=== PATIENT | female | born 1985 | race Caucasian/White ===

== ENCOUNTER → 2018-12-01 | Outpatient (CLI) | payer BC ==
--- NOTE | 2018-12-01 12:53 | Diagnostic Imaging Report ---
INDICATION: survey. TECHNIQUE: Multiple real-time grayscale images were obtained over the gravid uterus. COMPARISON: None. FINDINGS: There is a single live fetus in breech presentation. heart rate was recorded at 132 beats per minute. The placenta is posterior. The amniotic fluid volume is normal. survey demonstrates kidneys, bladder, and stomach to be unremarkable. The brain is unremarkable. There is a four-chamber heart. There is a three-vessel cord with normal insertion. The spine is unremarkable. Biometrical measurements are as follows: Biparietal 4.51 cm, age 19 weeks 5 days. Head circumference 18.02 cm, age 20 weeks 4 days. Abdominal circumference 14.70 cm, age 20 weeks 0 days. Femur length 3.26 cm, age 20 weeks 2 days. Sonographic estimate age: 20 weeks 1 days. Sonographic estimated date of delivery: 04/18/2019. Estimated Weight: 332 gm (+/- 48 gm). LMP percentile: 35%. heart rate: 132 beats per minute. number: 1 of 1. IMPRESSION: Single live IUP at approximately 20 weeks 1 day gestational age. The estimated date of confinement sonographically is 04/18/2019. Dictated by: Dictated on workstation # [id number]
== END ==
LOC: RAD 10:07
PROVIDERS: ATTEND Obstetrics & Gynecology
DX: Z36.89 Encounter for other specified antenatal screening (principal); Z3A.20 20 weeks gestation of pregnancy
CPT/HCPCS: 76805

== ENCOUNTER 2019-04-20 05:36 | Inpatient (IN) | payer BC ==
[~2019-04-20] VITALS: Ht 167.6 cm; Wt 90.7 kg
[2019-04-20] VITALS (40 sets, daily range): BP systolic 91–143; BP diastolic 61–92
--- NOTE | 2019-04-20 05:42 | NUR ---
MELBA HERNANDES presented to unit via wheelchair from ED, accompanied by s.o. and ED staff member, with c/o CONTRACTIONS,LOST MUCUS PLUG. MELBA HERNANDES weighed, gowned, voided, and to bed. EFHM and TOCO applied, VS taken. MELBA HERNANDES oriented to bed controls, call light, TV, heat, and A/C controls.
[2019-04-20] MEDS ORDERED: CETI10TA20 PO (06:04)
[2019-04-20] MEDS ORDERED: PREN-142 PO (06:04)
[2019-04-20 06:05] LABS: BILIRUBIN,URINE NEGATIVE (NEGATIVE); CLARITY,URINE SLIGHTLY CLOUDY; COLOR,URINE YELLOW; GLUCOSE, URINE (UA) NEGATIVE (NEGATIVE); KETONES,URINE NEGATIVE (NEGATIVE); LEUKOCYTE ESTERASE ,URINE 3+ (NEGATIVE); NITRITE,URINE NEGATIVE (NEGATIVE); PH,URINE 8 (5-9); PROTEIN,URINE 1+ (NEGATIVE); UROBILINOGEN,URINE NORMAL (NORMAL)
[2019-04-20 06:27] LABS: RBC,URINE 25-50 /HPF
[2019-04-20 06:28] LABS: BACTERIA,URINE MODERATE /HPF
--- NOTE | 2019-04-20 06:53 | NUR ---
called and notified of arrival, complaint and assessment. admission order received.
--- NOTE | 2019-04-20 06:53 | NUR ---
sve performed. no cervical change noted.
[2019-04-20] MEDS ORDERED: D5 LR IV SOLUTION 1,000 ML IV SCH (07:07)
[2019-04-20 07:48] LABS: BASOPHILS % (AUTO) 0 % (0-10); EOSINOPHILS # (AUTO) 0.1 10^3/uL (0.0-0.3); EOSINOPHILS % (AUTO) 1 % (0-10); HEMATOCRIT 36 % (35-52); HEMOGLOBIN 12.2 G/DL (11.5-16.0); LYMPHOCYTES # (AUTO) 1.4 X 10^3 (1.0-4.0); LYMPHOCYTES % (AUTO) 13 % (12-44); MEAN CORPUSCULAR HEMOGLOBIN 31 PG (25-34); MEAN CORPUSCULAR HGB CONC 34 G/DL (32-36); MEAN CORPUSCULAR VOLUME 91 FL (80-99); MEAN PLATELET VOLUME 10.9 FL (7.4-10.4); MONOCYTES % (AUTO) 9 % (0-12); NEUTROPHILS # (AUTO) 8.9 X 10^3 (1.8-7.8); NEUTROPHILS % (AUTO) 78 % (42-75); PLATELET COUNT 144 10^3/uL (130-400); RED CELL DISTRIBUTION WIDTH 14.4 % (10.0-14.5); WHITE BLOOD COUNT 11.4 10^3/uL (4.3-11.0)
--- NOTE | 2019-04-20 08:25 | History & Physical-OB ---
OB - Chief Complaint & HPI Date/Time Date of Admission: Date of Admission: 04/20/2019 Date seen by a Provider: Apr 20, 2019 Time Seen by a Provider: 08:30 Chief Complaint/History OB-Reason for Admission/Chief: Onset of Labor Hx : 2 Hx Para: 1 Expected Date of Delivery: Apr 18, 2019 Gestational Age in Weeks: 40 Gestational Age in Days: 2 Admission Nurse Assessment Rev: Yes History of Labs O pos Antibody neg RNI RPR NR HBsAg NR HIV NR GC neg GBS neg Allergies and Home Medications Allergies Coded Allergies: No Known Drug Allergies (Unverified , 04/20/19) Home Medications Cetirizine HCl 10 Mg Tablet, 10 MG PO DAILY, (Reported) Vit No.124/Iron/FA 1 Each Tablet, 1 EACH PO DAILY, (Reported) Patient Home Medication List Home Medication List Reviewed: Yes OB - History Hx of Present Care: Yes Ultrasounds: Normal mid trimester US Obstetrical Complications: None Medical Complications: None Obstetrical History Hx : 2 Hx Para: 1 Patient Past Medical History n/a Social History/Family History Recent Infectious Disease Expo: No OB - Admission Exam Physical Exam Vitals: Vital Signs 04/20/19 05:50 Temp 97.9 Pulse 88 Resp 18 B/P (MAP) 129/76 (93) O2 Delivery Room Air HEENT: NCAT Heart: Rhythm Normal Lungs: Clear Abdomen: Gravid Extremities: Normal Reflexes: Normal Cervical Dilatation: 1cm Effacement: 75% Station: -1 Membranes: Intact Heart Rate: 130's Accelerations: Accelerations Present Decelerations: No Decelerations Short Term Variability: Present State Highway Police Officer Variability: Average (6-25) Contractions on Admission: 6-10 Minutes Apart Intensity: Moderate Labs Laboratory Tests Test 04/20/19 05:50 04/20/19 07:30 Range/Units Urine Color YELLOW Urine Clarity SLIGHTLY CLOUDY Urine pH 8 5-9 Urine Specific [place] 1.015 L 1.016-1.022 Urine Protein 1+ H NEGATIVE Urine Glucose (UA) NEGATIVE NEGATIVE Urine Ketones NEGATIVE NEGATIVE Urine Nitrite NEGATIVE NEGATIVE Urine Bilirubin NEGATIVE NEGATIVE Urine Urobilinogen NORMAL NORMAL MG/DL Urine Leukocyte Esterase 3+ H NEGATIVE Urine RBC (Auto) 5+ H NEGATIVE Urine RBC 25-50 H /HPF Urine WBC 10-25 H /HPF Urine Squamous Epithelial Cells 10-25 H /HPF Urine Crystals NONE /LPF Urine Bacteria MODERATE H /HPF Urine Casts NONE /LPF Urine Mucus NEGATIVE /LPF Urine Culture Indicated YES White Blood Count 11.4 H 4.3-11.0 10^3/uL Red Blood Count 3.93 L 4.35-5.85 10^6/uL Hemoglobin 12.2 11.5-16.0 G/DL Hematocrit 36 35-52 % Mean Corpuscular Volume 91 80-99 FL Mean Corpuscular Hemoglobin 31 25-34 PG Mean Corpuscular Hemoglobin Concent 34 32-36 G/DL Red Cell Distribution Width 14.4 10.0-14.5 % Platelet Count 144 130-400 10^3/uL Mean Platelet Volume 10.9 H 7.4-10.4 FL Neutrophils (%) (Auto) 78 H 42-75 % Lymphocytes (%) (Auto) 13 12-44 % Monocytes (%) (Auto) 9 0-12 % Eosinophils (%) (Auto) 1 0-10 % Basophils (%) (Auto) 0 0-10 % Neutrophils # (Auto) 8.9 H 1.8-7.8 X 10^3 Lymphocytes # (Auto) 1.4 1.0-4.0 X 10^3 Monocytes # (Auto) 1.0 0.0-1.0 X 10^3 Eosinophils # (Auto) 0.1 0.0-0.3 10^3/uL Basophils # (Auto) 0.0 0.0-0.1 10^3/uL OB - Assessment/Plan/Diagnosis Assessment Assessment: active labor Admission Dx 33 yo @ 40.2 Latent labor Postdates GBS neg Admission Status: Inpatient Order (span 2 midnights) Reason for Inpatient Admission: Postdates augmentation of labor Plan Induction Method: HARRIS LOPES DO Apr 20, 2019 08:25
[2019-04-20] MEDS ORDERED: OXYTOCIN/NORMAL SALINE 500 ML IV ONE ×2 (08:28→16:11)
[2019-04-20] MEDS ORDERED: SUFENTA 0.6MCG/ML BUPIVA 0.125 100 ML ONE (08:29)
[2019-04-20] MEDS ORDERED: LACTATED RINGERS 1,000 ML IV SCH (09:58)
[2019-04-20] MEDS ORDERED: NALOXONE 0.4 MG/ML 1 ML (NARCAN) VIAL IV PRN ×2 (10:00)
[2019-04-20] MEDS ORDERED: diphenhydrAMINE 50 MG/ML INJ (BENADRYL) IV PRN (10:00)
[2019-04-20] MEDS ORDERED: EPIDURAL (SUFENTA 0.6MCG/ML BUPIVA 0.125%) 100 ML BAG EPI SCH (10:00)
[2019-04-20] MEDS ORDERED: ONDANSETRON 4 MG/2 ML (SDV) Z0FRAN IV PRN (10:00)
[2019-04-20] MEDS ORDERED: METOCLOPRAMIDE INJ 10 MG/2 ML (REGLAN) IV PRN (10:00)
[2019-04-20] MEDS ORDERED: LIDOCAINE PF 2% 5 ML (XYLOCAINE) VIAL ONE ×2 (12:34→15:16)
[2019-04-20] MEDS ORDERED: LIDOCAINE/EPI 2% 1:200,00 (XYLOCAINE) 10 ML VIAL ONE (14:30)
[2019-04-20] MEDS ORDERED: METHYLERGONOVINE 0.2 MG/ML (METHERGINE) AMP ONE ×2 (14:51→15:34)
[2019-04-20] MEDS ORDERED: CARBOPROST (HEMABATE) 250 MCG/ML AMP IM ONE (15:00)
[2019-04-20] MEDS ORDERED: MISOPROSTOL 200 MCG (CYTOTEC) TABLET ONE (15:00)
[2019-04-20] MEDS ORDERED: fentaNYL INJECTION 100 MCG/2 ML AMP ONE (15:16)
[2019-04-20] MEDS ORDERED: SUCCINYLCHOLINE INJ 100 MG/5 ML SYR ONE (15:16)
[2019-04-20] MEDS ORDERED: proPOfol 200 MG/20 ML (DIPRIVAN) VIAL IV ONE (15:16)
[2019-04-20] MEDS ORDERED: SEVOFLURANE (ULTANE) 15 ML INHAL SOLN ONE ×2 (15:16→16:47)
[2019-04-20] MEDS ORDERED: MIDAZOLAM 2 MG/2 ML (VERSED) VIAL ONE (15:17)
[2019-04-20 15:38] LABS: HEMOGLOBIN 11.1 G/DL (11.5-16.0); MEAN PLATELET VOLUME 10.2 FL (7.4-10.4); RED CELL DISTRIBUTION WIDTH 14.5 % (10.0-14.5); WHITE BLOOD COUNT 17.6 10^3/uL (4.3-11.0)
[2019-04-20] MEDS ORDERED: OXYTOCIN (PITOCIN) 10 UNIT/ML VIAL ONE ×3 (15:43→15:44)
[2019-04-20] MEDS ORDERED: morphine INJ 10 MG/ML 1ML (SYR OR VIAL) ONE (15:46)
[2019-04-20] MEDS ORDERED: HYDROmorphone 2 MG/ML VIAL (DILAUDID) ONE (15:51)
[2019-04-20] MEDS ORDERED: VASOPRESSIN INJECTION 20 UNIT/ML VIAL ONE (15:51)
[2019-04-20] MEDS ORDERED: ROCURONIUM 10 MG/ML 5 ML SYRINGE IV ONE (16:01)
[2019-04-20] MEDS ORDERED: SUGAMMADEX 500 MG/5 ML VIAL (BRIDION) IV ONE (16:15)
--- NOTE | 2019-04-20 16:38 | OB Labor & Delivery Record ---
L&D History Date of Service Date of Service: Apr 20, 2019 History Expected Date of Delivery: Apr 18, 2019 Gestational Age in Weeks: 40 Hx : 2 Hx Para: 1 Complications Events: Routine care Operative Indications (Cesarea: N/A-Vaginal Delivery Intrapartal Events: None L&D Stage1 Stage One Onset of Labor - Date: Apr 20, 2019 Monitors and Tracing Monitor Mode: External Heart Rate: 140 Monitor Decelerations: None Station: -1 Senior Care Variability: Moderate (11-25) Short Term Variability: Present Presentation: Vertex Vital Signs VS - Last 72 Hours, by Label 04/20/19 05:50 Temp 97.9 Pulse 88 Resp 18 B/P (MAP) 129/76 (93) O2 Delivery Room Air Rupture of Membranes Spontaneous Ruture of Membrane: No Amniotic Membrane Rupture Time: 09:15 Amniotic Membrane Fluid Desc.: Bloody Vaginal Bleeding Description: Normal Show Progress/Notes Pitocin augmentation used up to dose of 8mu and patient received epidural, and progressed to complete and +2 station L&D Stage2 Stage Two Stage II Date: Apr 20, 2019 Monitors and Tracing Monitor Mode: External Heart Rate: 140 Monitor Accelerations: Uniform Monitor Decelerations: Variable Contracting Manager Variability: Average (6-10) Short Term Variability: Present Position: Right Occiput Anterior Presentation: Vertex Cord Descript/Complications Cord Vessel Description: 3 Vessels Delivery Type Delivery Method: Spontaneous Vaginal Anterior Shoulder: Right Episiotomy/Perineal Laceration Laceraction(s)/Extensions: Yes Episiotomy Description: Midline Degree (describe repair) midline episiotomy and right periurethral repaired in usual fashion using 3-0 and 2-0 vicryl suture Condition of Delivery 1 minute Comment: 7 5 minute Comment: 9 Notes Live female weight 8lbs 1 oz Condition of Condition of : Living Exam: No Observed Abnormalities Resuscitation Resuscitation: N/A - Spontaneous Resp L&D Stage3 Stage Three Stage III Date: Apr 20, 2019 Pictocin Pitocin Administration Comment: 30 wide open at delivery of placenta Placenta Delivery Placenta Delivery: Spontaneous Delivery Summary Summary Estimated blood loss (mL): 2700 ml Attending at delivery: Harris Hung DO Condition of Delivery Post Hemorrhage: Yes Intervention Required 800 mcg cytotec IA, Hemabate 250 mcg IM, and 0.2 mg Methergine IM all given in LDR, as well as gentle curretage with banjo curette without improvement in bleeding patient. Taken to the OR see operative report Condition of Mother stable Condition of Infant (s) stable HARRIS HUNG DO Apr 20, 2019 16:38
[2019-04-20] MEDS ORDERED: OXYTOCIN/NORMAL SALINE 500 ML IV SCH (16:39)
[2019-04-20] MEDS ORDERED: PROMETHAZINE INJ 25 MG/ML (PHENERGAN) AMP ONE (16:40)
[2019-04-20] MEDS ORDERED: BENZOCAINE/MENTHOL (DERMOPLAST) 56 ML CAN TP PRN (16:45)
[2019-04-20] MEDS ORDERED: PROMETHAZINE INJ 25 MG/ML (PHENERGAN) AMP IVP ONE (16:45)
[2019-04-20] MEDS ORDERED: WITCH HAZEL(TUCKS) 40 EA JAR TOP PRN (16:45)
[2019-04-20] MEDS ORDERED: HYDROmorphone 2 MG/ML VIAL (DILAUDID) IV ONE (16:45)
[2019-04-20] MEDS ORDERED: TETANUS,DIPTH,PERTUSS P/F (BOOSTRIX) 0.5 ML VIAL IM ONE (16:45)
[2019-04-20] MEDS ORDERED: ceFAZolin INJECTION 1,000 MG in WATER (STERILE) FOR INJECTION 10 ML IV NR (16:45)
[2019-04-20] MEDS ORDERED: ONDANSETRON 4 MG/2 ML (SDV) Z0FRAN IVP PRN (16:45)
[2019-04-20] MEDS ORDERED: MEASLES,MUMPS,RUBELLA 1 EA INJ SQ ONE (16:45)
--- NOTE | 2019-04-20 17:36 | NUR ---
to pp room 307 following OR procedure.
--- NOTE | 2019-04-20 17:45 | NUR ---
fundal massage. u/0 moderate flow no clots expressed. vitals taken. family to bedside. request ice chips.
[2019-04-20] MEDS: OXYTOCIN/NORMAL SALINE 500 ML IV SCH ×2 (17:55→22:27)
--- OUTSIDE RECORDS SUMMARY | 2019-04-20 19:05 | XMS REPORT ---
Author Author KARL DAMON Organization [facility] Address [address] [place] [id number] Care Team Providers Care Identification And Records Commander Name Role Phone KARL DAMON Unavailable PROBLEMS Type Condition ICD9-CM Code BRM88-BC Code Onset Dates Condition Status SNOMED Code Problem Routine adult health maintenance Z00.00 Active [id number] ALLERGIES No Known Allergies ENCOUNTERS Encounter Location Date Diagnosis [facility] [address] [place], [place] [id number] [place] [phone] February, Routine adult health maintenance Z00.00 [facility] [address] [id number] [address] Jun, Encounter for immunization Z23 [facility] [id number] [place] [phone] Aug, Encounter for immunization [address] [place] [phone] May, History and physical examination, occupation Z02.89 and Cyst of skin and subcutaneous tissue L72.0 IMMUNIZATIONS No Known Immunizations SOCIAL HISTORY Never Assessed REASON FOR VISIT daycare physical/TB---christal 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 PLAN OF CARE Activity Details Follow Up prn Reason: VITAL SIGNS Height 66 in 2018-03-15 Weight 184 lbs 2018-03-15 Temperature 97.3 degrees Fahrenheit 2018-03-15 Heart Rate 95 bpm 2018-03-15 Respiratory Rate 16 2018-03-15 BMI 29.70 kg/m2 2018-03-15 Blood pressure systolic 128 mmHg 2018-03-15 Blood pressure diastolic 84 mmHg 2018-03-15 MEDICATIONS Unknown Medications RESULTS No Results PROCEDURES No Known procedures INSTRUCTIONS MEDICATIONS ADMINISTERED No Known Medications
--- OUTSIDE RECORDS SUMMARY | 2019-04-20 19:05 | XMS REPORT ---
Author Author KAITLYN NORWOOD [facility] Address [address] [place] [address] Care Team Providers Care Engine Manager Name Role Phone KAITLYN NORWOOD Unavailable PROBLEMS Type Condition ICD9-CM Code ZZB55-LN Code Onset Dates Condition Status SNOMED Code Problem Routine adult health maintenance Z00.00 Active [id number] ALLERGIES No Information ENCOUNTERS Encounter Location Date Diagnosis [facility] [id number] [place] [phone] Aug, Encounter for immunization [address] [place] [id number] [address] February, Routine adult health maintenance Z00.00 [facility] [address] [place] [id number] [address] Jun, Encounter for immunization [id number] [place] [phone] Aug, Encounter for immunization [id number] [address] May, History and physical examination, occupation Z02.89 and Cyst of skin and subcutaneous tissue L72.0 IMMUNIZATIONS Vaccine Route Administration Date Status FLULAVAL QUAD 0.5ML (6 MO & UP) 2018 IM Intramuscular Aug 17, 2018 Administered SOCIAL HISTORY Never Assessed REASON FOR VISIT Flu shot PLAN OF CARE VITAL SIGNS MEDICATIONS Unknown Medications RESULTS No Results PROCEDURES Procedure Date Ordered Result Body Site FLULAVAL QUAD 0.5ML (6 MO AND UP) 2018 Aug 17, 2018 SINGLE IMMUNIZATION ADMIN Aug 17, 2018 INSTRUCTIONS MEDICATIONS ADMINISTERED No Known Medications
--- OUTSIDE RECORDS SUMMARY | 2019-04-20 19:05 | XMS REPORT ---
Author Author CHAPARRITA SOLER [facility] Address [address] [address] Care Team Providers Care Director Software Name Role Phone CHAPARRITA SOLER Unavailable PROBLEMS No Known Problems ALLERGIES Unknown Allergies SOCIAL HISTORY No smoking Hx information available PLAN OF CARE VITAL SIGNS MEDICATIONS Unknown Medications RESULTS No Results PROCEDURES Procedure Date Ordered Related Diagnosis Body Site FLUARIX QUAD P-FREE 3 AND UP .50 2015Sep 15, 2016 SINGLE IMMUNIZATION ADMIN Sep 15, 2016 IMMUNIZATIONS Vaccine Route Administration Date Status FLUARIX QUAD P-FREE 3 AND UP .50 2015 IM Intramuscular Sep 15, 2016 Administered
[2019-04-20] MEDS: DOCUSATE SODIUM 100 MG (COLACE) CAP PO SCH (21:04)
[2019-04-20] MEDS: METHYLERGONOVINE 0.2 MG (MEHTERGINE) TAB PO SCH (21:04)
[2019-04-20] MEDS: IBUPROFEN 600 MG (MOTRIN) TAB PO SCH (21:04)
[2019-04-20] MEDS ORDERED: CATHETER FLUSH 10 ML SYR IV SCH (22:00)
[2019-04-20 22:09] LABS: BASOPHILS % (AUTO) 0 % (0-10); EOSINOPHILS % (AUTO) 0 % (0-10); HEMATOCRIT 29 % (35-52); HEMOGLOBIN 10.2 G/DL (11.5-16.0); LYMPHOCYTES % (AUTO) 4 % (12-44); MEAN CORPUSCULAR HEMOGLOBIN 31 PG (25-34); MEAN CORPUSCULAR HGB CONC 35 G/DL (32-36); MEAN CORPUSCULAR VOLUME 87 FL (80-99); MONOCYTES # (AUTO) 1.3 X 10^3 (0.0-1.0); MONOCYTES % (AUTO) 6 % (0-12); NEUTROPHILS # (AUTO) 21.4 X 10^3 (1.8-7.8); NEUTROPHILS % (AUTO) 90 % (42-75); PLATELET COUNT 137 10^3/uL (130-400); WHITE BLOOD COUNT 23.8 10^3/uL (4.3-11.0)
[2019-04-21 00:10] VITALS: BP 105/65
--- NOTE | 2019-04-21 02:14 | OPERATIVE REPORT ---
DATE OF SERVICE: PREOPERATIVE DIAGNOSES: 1. A 33-year-old female vaginal hemorrhage. 2. Uterine atony. POSTOPERATIVE DIAGNOSES: 1. A 33-year-old female vaginal hemorrhage. 2. Uterine atony. 3. Retained products of conception. PROCEDURE: Exam under anesthesia with uterine curettage and manual uterine exploration. SURGEON: Zeferino Almonte DO ANESTHESIA: General endotracheal. ESTIMATED BLOOD LOSS: 1500 mL in the operating room, 1200 mL in the labor room, for a total of 2700 mL. FLUIDS: 1200 mL of lactated Ringer's solution. Pathology sent retained products of conception. INDICATIONS FOR PROCEDURE: This 33-year-old female delivered a normal vaginal delivery. Her repair included a midline episiotomy and right periurethral, which was closed in the usual fashion. However, bleeding continued to ensue despite 0.2 mg of Methergine IM and 250 mcg of Hemabate IM and 800 mcg of Cytotec given rectally. I also performed a gentle curettage using a Banjo curette in the labor and delivery room without any improvement. The patient was having significant amounts of discomfort with this part of the procedure. I discussed with the patient proceeding emergently to the operating room to stop her bleeding. We discussed that it could include anything up to and including a hysterectomy. Risk of the procedure was inferred in the emergent situation as well as on the consent, which was obtained emergently from the patient and then, the patient was urgently taken to the operating room by LDR staff and met in the OR with the OR staff. OPERATIVE REPORT IN DETAIL: Once in the operating room, anesthesia was administered and found to be adequate. She was placed in dorsal lithotomy position, prepped and draped in normal sterile fashion. A Donaldson catheter was first placed to ensure bladder drainage was continuous and there was no backup of urine in the bladder to continue uterine atony. At that point, I placed a weighted speculum into the patient's vagina. A right angle retractor was used to visualize the cervix, which was grasped at 12 o'clock position using a long ring forceps. A gentle curetting was performed around all of the opening cavities inside of the endometrium and small to moderate amount of products of conception, which appeared to be products of conception are removed including possible membranes and placental parenchyma. Once this was done, the bleeding still does not improve. I have anesthesia administered and another 0.2 mg of Methergine IM. This was approximately 45 minutes after her first dose, which was in the LDR room. Another 30 units of Pitocin ran and wide open and with vigorous fundal massage and manual exploration of the uterine cavity, I finally get some uterine tone and some response to my massage and the bleeding slowed down significantly. This takes approximately 15 to 20 minutes before it occurs and her blood loss reaches approximately 1500 mL. After which, her bleeding has significantly slowed down and bimanual massage and manipulation and fundal massage does not express hardly any bleeding, after which the patient did well, but 2 units of blood were ordered to transfuse. Intraoperative hemoglobin was checked and found to still be 11; however, I do not think this was corrected due to the acute blood loss. We will repeat hemoglobin in 3 to 4 hours to get a better idea of where we are at. A 1 gram of Ancef was ordered postoperatively due to amount of blood loss. The patient tolerated the procedure well and was taken to the recovery area in stable condition. Lap and sponge counts were correct at the end of the procedure. Instrument counts correct as well. Job ID: [id number] DocumentID: [id number] Dictated Date: 04/20/2019 16:48:00 Survey Questionnaire Designer Date: 04/21/2019 02:13:55 Dictated By: DO TRISHA SIEGEL
[2019-04-21 03:30] VITALS: BP 91/60
[2019-04-21] MEDS: IBUPROFEN 600 MG (MOTRIN) TAB PO SCH ×4 (03:30→21:38)
[2019-04-21 05:41] LABS: BASOPHILS % (AUTO) 0 % (0-10); EOSINOPHILS % (AUTO) 0 % (0-10); HEMATOCRIT 23 % (35-52); HEMOGLOBIN 7.6 G/DL (11.5-16.0); LYMPHOCYTES # (AUTO) 1.7 X 10^3 (1.0-4.0); LYMPHOCYTES % (AUTO) 11 % (12-44); MEAN CORPUSCULAR HEMOGLOBIN 30 PG (25-34); MEAN CORPUSCULAR HGB CONC 34 G/DL (32-36); MEAN CORPUSCULAR VOLUME 88 FL (80-99); MEAN PLATELET VOLUME 10.2 FL (7.4-10.4); MONOCYTES # (AUTO) 1.6 X 10^3 (0.0-1.0); MONOCYTES % (AUTO) 10 % (0-12); NEUTROPHILS # (AUTO) 12.1 X 10^3 (1.8-7.8); NEUTROPHILS % (AUTO) 79 % (42-75); PLATELET COUNT 120 10^3/uL (130-400); RED CELL DISTRIBUTION WIDTH 17.4 % (10.0-14.5); WHITE BLOOD COUNT 15.4 10^3/uL (4.3-11.0)
--- NOTE | 2019-04-21 07:20 | Postpartum Progress Note ---
Note Note Day # 1 Subjective: Patient is without complaints. Ambulating, voiding. Tolerating a regular diet without nausea or vomiting. Normal lochia. Pain is well controlled with oral pain medications. Objective: Physical Exam: General - Alert and oriented, no apparent distress Abdomen - Soft, appropriately tender to palpation, non-distended, fundus firm at umbilicus Extremities - no edema, negative Nehemias's bilaterally Assessment: PPD 1 NVD Acute blood loss anemia hemorrhage Plan: Routine care. Encourage breast feeding. Encourage ambulation. Ferrous sulfate supplementation. Plan for discharge tomorrow Vitals - Labs Vital Signs - I&O Vital Signs Date Time Temp Pulse Resp B/P (MAP) Pulse Ox O2 Delivery O2 Flow Rate FiO2 04/21/19 03:30 98.4 101 16 91/60 (70) 97 Room Air 04/21/19 00:10 98.6 110 16 105/65 (78) 98 Room Air 04/20/19 19:41 99.2 95 16 100/66 (77) 97 Room Air 04/20/19 17:45 99.1 97 16 106/69 (81) Room Air 04/20/19 17:35 OxyMask 3 04/20/19 17:35 98.1 22 96 Room Air 04/20/19 17:30 OxyMask 3 04/20/19 17:30 22 96 Room Air 04/20/19 17:20 97.5 20 100 Room Air 04/20/19 17:15 OxyMask 3 04/20/19 17:10 97.5 16 99 OxyMask 3 04/20/19 17:00 97.8 12 99 OxyMask 3 04/20/19 17:00 OxyMask 3 04/20/19 16:50 97.8 14 100 OxyMask 5 04/20/19 16:45 OxyMask 5 04/20/19 16:40 97.6 18 100 OxyMask 10 04/20/19 16:34 OxyMask 10 04/20/19 16:34 97.5 24 99 OxyMask 10 04/20/19 15:05 121 20 133/78 (96) Room Air 04/20/19 14:55 99.0 110 20 143/70 (94) Room Air 04/20/19 14:50 98.8 111 20 135/71 (92) Room Air 04/20/19 14:35 107 20 134/92 (106) Room Air 04/20/19 14:20 93 20 127/83 (98) Room Air 04/20/19 14:05 104 20 126/79 (95) 99 Room Air 04/20/19 13:45 95 20 126/77 (93) 99 Room Air 04/20/19 13:30 20 123/77 (92) 99 Room Air 04/20/19 13:15 100 20 134/78 (96) 99 Room Air 04/20/19 13:00 105 18 121/77 (92) 100 Room Air 04/20/19 12:45 98 18 126/73 (90) 100 Room Air 04/20/19 12:30 97 18 125/76 (92) 100 Room Air 04/20/19 12:15 90 18 128/76 (93) 99 Room Air 04/20/19 12:00 86 18 121/76 (91) 100 Room Air 04/20/19 11:45 83 18 118/73 (88) 100 Room Air 04/20/19 11:30 90 18 119/79 (92) 100 Room Air 04/20/19 11:15 90 18 119/77 (91) 100 Room Air 04/20/19 11:00 90 18 108/62 (77) 100 Room Air 04/20/19 10:45 95 18 108/68 (81) 99 Room Air 04/20/19 10:30 85 18 115/69 (84) 99 Room Air 04/20/19 10:20 98 18 114/63 (80) 98 Room Air 04/20/19 10:15 96 18 119/77 (91) 98 Room Air 04/20/19 10:10 108 18 115/66 (82) 99 Room Air 04/20/19 10:05 112 18 140/70 (93) 99 Room Air 04/20/19 10:00 108 20 136/72 (93) 99 Room Air 04/20/19 09:55 100 20 138/85 (102) 98 Room Air 04/20/19 09:50 101 20 129/74 (92) 98 Room Air 04/20/19 09:45 105 20 131/82 (98) 99 Room Air 04/20/19 08:25 97.6 89 20 138/88 (105) Room Air I & O 04/21/19 07:00 Intake Total 2400 ml Output Total 960 ml Balance 1440 ml Labs Laboratory Tests 04/20/19 07:30: White Blood Count 11.4H, Red Blood Count 3.93L, Hemoglobin 12.2, Hematocrit 36, Mean Corpuscular Volume 91, Mean Corpuscular Hemoglobin 31, Mean Corpuscular Hemoglobin Concent 34, Red Cell Distribution Width 14.4, Platelet Count 144, Mean Platelet Volume 10.9H, Neutrophils (%) (Auto) 78H, Lymphocytes (%) (Auto) 13, Monocytes (%) (Auto) 9, Eosinophils (%) (Auto) 1, Basophils (%) (Auto) 0, Neutrophils # (Auto) 8.9H, Lymphocytes # (Auto) 1.4, Monocytes # (Auto) 1.0, Eosinophils # (Auto) 0.1, Basophils # (Auto) 0.0 04/20/19 15:31: White Blood Count 17.6H, Red Blood Count 3.50L, Hemoglobin 11.1L, Hematocrit 33L , Mean Corpuscular Volume 93, Mean Corpuscular Hemoglobin 32, Mean Corpuscular Hemoglobin Concent 34, Red Cell Distribution Width 14.5, Platelet Count 163, Mean Platelet Volume 10.2 04/20/19 22:03: White Blood Count 23.8H, Red Blood Count 3.30L, Hemoglobin 10.2L, Hematocrit 29L , Mean Corpuscular Volume 87, Mean Corpuscular Hemoglobin 31, Mean Corpuscular Hemoglobin Concent 35, Red Cell Distribution Width 17.0H, Platelet Count 137, Mean Platelet Volume 10.0, Neutrophils (%) (Auto) 90H, Lymphocytes (%) (Auto) 4L , Monocytes (%) (Auto) 6, Eosinophils (%) (Auto) 0, Basophils (%) (Auto) 0, Neutrophils # (Auto) 21.4H, Lymphocytes # (Auto) 1.0, Monocytes # (Auto) 1.3H, Eosinophils # (Auto) 0.0, Basophils # (Auto) 0.0 04/21/19 05:15: White Blood Count 15.4H, Red Blood Count 2.56L, Hemoglobin 7.6#L, Hematocrit 23L , Mean Corpuscular Volume 88, Mean Corpuscular Hemoglobin 30, Mean Corpuscular Hemoglobin Concent 34, Red Cell Distribution Width 17.4H, Platelet Count 120L, Mean Platelet Volume 10.2, Neutrophils (%) (Auto) 79H, Lymphocytes (%) (Auto) 1 1L, Monocytes (%) (Auto) 10, Eosinophils (%) (Auto) 0, Basophils (%) (Auto) 0, Neutrophils # (Auto) 12.1H, Lymphocytes # (Auto) 1.7, Monocytes # (Auto) 1.6H, Eosinophils # (Auto) 0.0, Basophils # (Auto) 0.0 HARRIS HUNG DO Apr 21, 2019 07:20
--- NOTE | 2019-04-21 07:45 | NUR ---
DR. HUNG HERE TO SEE PT.
--- NOTE | 2019-04-21 08:11 | Anesthesia-General Post-Op ---
General Patient Condition Mental Status/LOC: Same as Preop Cardiovascular: Satisfactory Nausea/Vomiting: Absent Respiratory: Satisfactory Pain: Controlled Complications: Absent Post Op Complications Complications None Follow Up Care/Instructions Patient Instructions None needed. Anesthesia/Patient Condition Patient Condition Patient is doing well, no complaints, stable vital signs, no apparent adverse anesthesia problems. No complications reported per nursing. JESSE CHAN CRNA Apr 21, 2019 08:11
--- NOTE | 2019-04-21 09:00 | NUR ---
CARING FOR INFANT IN ROOM. GOOD INTERACTION . GOING WELL.
[2019-04-21 10:15] VITALS: BP 112/56
--- NOTE | 2019-04-21 10:15 | NUR ---
VSS. ALANIZ D/C'ED WITH 600 CC CLEAR YELLOW URINE IN THE BAG. PERICARE WITH PAD AND PANTIES APPLIED DERMAPLAST SPRAY/ TUCKS/NUPERCAINAL TO PERINEUM. LABIA NOTED TO BE SWOLLEN. GOWN CHANGE. ASSISTED UP TO THE SIDE OF THE BED WITHOUT C/O DIZZINESS.
[2019-04-21] MEDS: DOCUSATE SODIUM 100 MG (COLACE) CAP PO SCH ×2 (10:29→21:38)
[2019-04-21] MEDS: METHYLERGONOVINE 0.2 MG (MEHTERGINE) TAB PO SCH ×3 (10:29→21:38)
[2019-04-21] MEDS: PRENATAL VITAMIN 1 EA TAB PO SCH (10:29)
[2019-04-21] MEDS: FERROUS SULF 325 MG (IRON) TAB PO SCH (10:29)
--- NOTE | 2019-04-21 10:30 | NUR ---
ASSISTED TO THE BATHROOM. VOIDED WITHOUT PROBLEMS. PERICARE PERFORMED. VAG FLOW LT RUBRA. FF U/2. OUT TO AMBULATE IN THE HALLWAY WITH STANDBY ASSIST X2. BACK TO SIT IN THE CHAIR WITHOUT PROBLEMS.
[2019-04-21] MEDS: DIBUCAINE (NUPERCAINAL) 1% OINT 30 GM TOP PRN (10:32)
--- NOTE | 2019-04-21 12:00 | NUR ---
CONTINUES TO DO WELL. ENCOURAGED TO AMBULATE IN THE [place] AT LEAST X4 TODAY WITH SPOUSE PRECISION AGRICULTURE SPECIALIST NEEDED.
[2019-04-21 13:00] VITALS: BP 113/66
--- NOTE | 2019-04-21 14:00 | NUR ---
CARING FOR INFANT IN ROOM. LOTS OF VISITORS. PT APPEARS ANXIOUS AT TIMES R/T SELF. REASSURANCE GIVEN. THIS RN HAS ASSISTED IN THE BATHROOM WITH PERICARE AND GOWN CHANGE
--- NOTE | 2019-04-21 16:00 | NUR ---
VOIDING WITHOUT PROBLEMS. FF U/2. VAG FLOW LT RUBRA. ICE PACK PRN.
--- NOTE | 2019-04-21 16:26 | Discharge Inst-Women's Service ---
Discharge Inst-Women's Serv Depart Medication/Instructions New, Converted or Re-Newed RX: RX on Chart Consults/Follow Up Additional Follow Up: Yes Activity Activity: Activity as Tolerated Driving Instructions: No Driving for 1 Week NO SMOKING: NO SMOKING Nothing Inside Vagina: No Douching, No [place], No Tampons Diet Discharge Diet: No Restrictions Symptoms to Report to : Bleeding Excessive, Pain Increased, Fever Over 101 Degrees F, Vaginal Bleeding Increase, Questions/Concerns For Any Problems or Questions: Contact Your Physician HARRIS HUNG DO Apr 21, 2019 16:26
[2019-04-21] MEDS ORDERED: CHLORASEPTIC LOZENGE MM ONE (16:34)
[2019-04-21 16:45] VITALS: BP 106/56
--- NOTE | 2019-04-21 18:00 | NUR ---
STORK MEAL TAKEN. CONTINUES TO DO WELL.
[2019-04-21] MEDS ORDERED: CHLORASEPTIC LOZENGE MM PRN (18:30)
[2019-04-21 21:38] VITALS: BP 108/57
[2019-04-22 03:28] VITALS: BP 113/59
[2019-04-22] MEDS: IBUPROFEN 600 MG (MOTRIN) TAB PO SCH ×3 (03:28→15:00)
[2019-04-22 06:46] LABS: BASOPHILS % (AUTO) 0 % (0-10); EOSINOPHILS # (AUTO) 0.1 10^3/uL (0.0-0.3); EOSINOPHILS % (AUTO) 1 % (0-10); LYMPHOCYTES # (AUTO) 1.5 X 10^3 (1.0-4.0); LYMPHOCYTES % (AUTO) 12 % (12-44); MEAN CORPUSCULAR HEMOGLOBIN 30 PG (25-34); MEAN CORPUSCULAR HGB CONC 32 G/DL (32-36); MEAN CORPUSCULAR VOLUME 92 FL (80-99); MONOCYTES # (AUTO) 1.2 X 10^3 (0.0-1.0); MONOCYTES % (AUTO) 9 % (0-12); NEUTROPHILS % (AUTO) 78 % (42-75); PLATELET COUNT 105 10^3/uL (130-400); RED CELL DISTRIBUTION WIDTH 17.3 % (10.0-14.5); WHITE BLOOD COUNT 12.8 10^3/uL (4.3-11.0)
[2019-04-22 06:53] LABS: HEMOGLOBIN 6.5 G/DL (11.5-16.0)
[2019-04-22 06:54] LABS: HEMATOCRIT 20 % (35-52)
--- NOTE | 2019-04-22 07:17 | Postpartum Progress Note ---
Note Note Day # 2 Subjective: Patient is without complaints. Ambulating, voiding. Tolerating a regular diet without nausea or vomiting. Normal lochia. Pain is well controlled with oral pain medications. Some lightheadedness. Objective: Physical Exam: General - Alert and oriented, no apparent distress Abdomen - Soft, appropriately tender to palpation, non-distended, fundus firm at umbilicus Extremities - no edema, negative Nehemias's bilaterally Assessment: PPD 2 NVD hemorrhage Acute blood loss anemia- symptomatic Plan: Routine care. Encourage breast feeding. Encourage ambulation. Ferrous sulfate supplementation. Plan for discharge today after blood transfusion 2 units Vitals - Labs Vital Signs - I&O Vital Signs Date Time Temp Pulse Resp B/P (MAP) Pulse Ox O2 Delivery O2 Flow Rate FiO2 04/22/19 03:28 98.3 117 18 113/59 (77) 97 Room Air 04/21/19 21:38 98.1 112 18 108/57 (74) 97 Room Air 04/21/19 16:45 98.0 115 18 106/56 (73) 99 Room Air 04/21/19 13:00 98.5 113 18 113/66 (82) 97 Room Air 04/21/19 10:15 98.5 112 18 112/56 (74) 97 Room Air I & O 04/22/19 07:00 Intake Total 700 ml Output Total 1100 ml Balance -400 ml Labs Laboratory Tests 04/22/19 06:30: White Blood Count 12.8H, Red Blood Count 2.20L, Hemoglobin 6.5*L, Hematocrit 20*L, Mean Corpuscular Volume 92, Mean Corpuscular Hemoglobin 30, Mean Corpuscular Hemoglobin Concent 32, Red Cell Distribution Width 17.3H, Platelet Count 105L, Mean Platelet Volume 10.0, Neutrophils (%) (Auto) 78H, Lymphocytes (%) (Auto) 12, Monocytes (%) (Auto) 9, Eosinophils (%) (Auto) 1, Basophils (%) (Auto) 0, Neutrophils # (Auto) 10.0H, Lymphocytes # (Auto) 1.5, Monocytes # (Auto) 1.2H, Eosinophils # (Auto) 0.1, Basophils # (Auto) 0.0 Microbiology 04/20/19 Urine Culture - Final, Complete 3 or more isolates HARRIS HUNG DO Apr 22, 2019 07:17
[2019-04-22] MEDS ORDERED: IBUP-844 PO (07:27)
[2019-04-22] MEDS ORDERED: Benzocaine/Menthol TP (07:27)
[2019-04-22] MEDS ORDERED: FERR325T18 PO (07:27)
[2019-04-22] MEDS ORDERED: DOCU100C37 PO (07:27)
[2019-04-22] MEDS ORDERED: NS IV 500 ML 500 ML ONE (07:30)
--- NOTE | 2019-04-22 07:30 | NUR ---
DR. HUNG HERE TO SEE PT. PLAN TO GIVE ANOTHER UNIT OF PRC'S.
[2019-04-22] MEDS ORDERED: NS IV 500 ML 500 ML IV SCH (07:45)
[2019-04-22] MEDS: PRENATAL VITAMIN 1 EA TAB PO SCH (08:54)
[2019-04-22] MEDS: METHYLERGONOVINE 0.2 MG (MEHTERGINE) TAB PO SCH ×2 (08:54→15:00)
[2019-04-22] MEDS: DOCUSATE SODIUM 100 MG (COLACE) CAP PO SCH (08:54)
[2019-04-22] MEDS: FERROUS SULF 325 MG (IRON) TAB PO SCH (08:54)
--- NOTE | 2019-04-22 09:07 | NUR ---
500 CC NS STARTED IN RIGHT EXISTING SALINE LOCK IN PREPARATION FOR BLOOD TRANSFUSION TRA KVO RATE. SITE CLEAR.
[2019-04-22 09:15] VITALS: BP 116/69
--- NOTE | 2019-04-22 09:15 | NUR ---
A.M. ASSESSMENT COMPLETED. VSS. AT BEDSIDE.
[2019-04-22 09:34] VITALS: BP 116/69
--- NOTE | 2019-04-22 09:34 | NUR ---
BLOOD STARTED. SEE TRANSFUSION RECORD. MANUAL CLERICAL CHECK PERFORMED WITH THIS RN AND BROOKE BOWLING RN WELL COMPUTER.
[2019-04-22 09:49] VITALS: BP 118/69
--- NOTE | 2019-04-22 10:00 | NUR ---
DOING WELL. EATING BREAKFAST. INFANT ASLEEP AT BEDSIDE.
--- NOTE | 2019-04-22 11:00 | NUR ---
BLOOD CONTINUES. DOING WELL. NO COMPLAINTS. SPOUSE AND AT BEDSIDE.
[2019-04-22 11:45] VITALS: BP 113/66
--- NOTE | 2019-04-22 11:45 | NUR ---
BLOOD INFUSED. SEE TRANSFUSION RECORD. VSS.
--- NOTE | 2019-04-22 13:30 | NUR ---
EATING LUNCH. ENCOURAGED AMBULATION TO TOLERANCE IN THE [place].
--- NOTE | 2019-04-22 14:15 | NUR ---
LAB HERE TO DRAW BLOOD FOR H AND H.
[2019-04-22 14:24] LABS: HEMOGLOBIN 8.3 G/DL (11.5-16.0)
--- NOTE | 2019-04-22 14:50 | NUR ---
DR. HUNG NOTIFIED OF PT'S H AND H. ORDER FOR DISCHARGE.
[2019-04-22] MEDS ORDERED: MEASLES,MUMPS,RUBELLA 1 EA INJ ONE (14:51)
--- NOTE | 2019-04-22 15:05 | NUR ---
MMR GIVEN SUBQ IN RIGHT UPPER ARM. LOTS OF FAMILY IN ROOM. PREPARING FOR DISCHARGE.
--- NOTE | 2019-04-22 15:25 | NUR ---
DISCHARGE INSTRUCTIONS REVIEWED WITH COPY TO PT. RXS GIVEN. STATES UNDERSTANDING OF ALL INSTRUCTIONS AND NEED TO F/U SCHEDULED AND NEEDED.
[2019-04-22] MEDS: DIBUCAINE (NUPERCAINAL) 1% OINT 30 GM TOP PRN (15:40)
[2019-04-22 16:25] VITALS: BP 113/66
--- NOTE | 2019-04-22 16:25 | NUR ---
DISMISSED FROM [facility] VIA W/C WITH IN STABLE CONDITION TO FAMILY CAR ACC BY MULTIPLE FAMILY MEMBERS, SPOUSE, AND SALBADOR KAY.
--- NOTE | 2019-04-25 16:17 | Physician Query-Final Dx ---
MACHO DANIELS 04/25/19 1617: Final Diagnosis Give Final Diagnosis Please give Final Diagnosis HARRIS HUNG DO 04/25/19 1659: Final Diagnosis Give Final Diagnosis PPD 2 NVD hemorrhage Acute blood loss anemia S/p transfusion 3 u PRBC MACHO DANIELS Apr 25, 2019 16:17 HARRIS HUNG DO Apr 25, 2019 16:59
== END 2019-04-22 16:25 | disposition home or self-care (01) | DRG 797 ==
LOC: WSo 05:36 → LDRP 05:38 → WSo 15:29 → LDRP 15:31
PROVIDERS: ADMIT Obstetrics & Gynecology; ATTEND Obstetrics & Gynecology
PROC: 0W8NXZZ Division of Female Perineum, External Approach (ICD-10-PCS; 2019-04-20)
PROC: 0UQMXZZ Repair Vulva, External Approach (ICD-10-PCS; 2019-04-20)
PROC: 10D17ZZ Extraction of Products of Conception, Retained, Via Natural or Artificial Opening (ICD-10-PCS; 2019-04-20)
PROC: 10D17Z9 Manual Extraction of Products of Conception, Retained, Via Natural or Artificial Opening (ICD-10-PCS; 2019-04-20)
PROC: 10E0XZZ Delivery of Products of Conception, External Approach (ICD-10-PCS; principal; 2019-04-20 15:24)
DX: O48.0 Post-term pregnancy (principal); O62.0 Primary inadequate contractions; O71.82 Other specified trauma to perineum and vulva; O72.0 Third-stage hemorrhage; O72.1 Other immediate postpartum hemorrhage; O90.81 Anemia of the puerperium; D62 Acute posthemorrhagic anemia; Z37.0 Single live birth; Z3A.40 40 weeks gestation of pregnancy; Z23 Encounter for immunization
CPT/HCPCS: 36415; 81000; 85014; 85018; 85025; 85027; 86850; 86900; 86901; 86920; 87088; 90707; 99212